=== PATIENT | male | born 1980 | race Caucasian/White ===

== ENCOUNTER 2019-06-22 19:44 | Emergency (ER) | payer BC ==
[~2019-06-22] VITALS: Ht 180.3 cm; Wt 86.3 kg
[~2019-06-22 19:44] MED LIST: CYCL10TA10 PO
[2019-06-22 19:50] VITALS: BP 102/68
[2019-06-22] MEDS ORDERED: ketorolac trometh inj. 60 MG/2 ML VIAL IM ONE (20:30)
== END 2019-06-22 21:00 | disposition home or self-care (01) ==
LOC: ER 19:44
DX: M25.571 Pain in right ankle and joints of right foot (principal); G89.29 Other chronic pain; F12.90 Cannabis use, unspecified, uncomplicated; Z98.890 Other specified postprocedural states; Z79.899 Other long term (current) drug therapy
CPT/HCPCS: 96372; 99283; J1885

== ENCOUNTER 2020-03-05 14:45 | Emergency (ER) | payer BC ==
[~2020-03-05] VITALS: Ht 182.9 cm; Wt 80.9 kg
[2020-03-05] MEDS ORDERED: LIDOcaine Viscous 15ml cup TP ONE (16:05)
[2020-03-05] MEDS ORDERED: HYDR-3965 PO (17:04)
[2020-03-05] MEDS ORDERED: AMOX-422 PO (17:04)
--- NOTE | 2020-03-05 17:26 | NUR ---
Patient declines oropharynx swab
[2020-03-05 17:28] VITALS: BP 120/81
== END 2020-03-05 17:29 | disposition home or self-care (01) ==
LOC: ER 14:45
DX: R07.0 Pain in throat (principal); H93.19 Tinnitus, unspecified ear; F12.90 Cannabis use, unspecified, uncomplicated; Z98.890 Other specified postprocedural states; Z79.2 Long term (current) use of antibiotics; Z79.899 Other long term (current) drug therapy
CPT/HCPCS: 99283

== ENCOUNTER 2021-09-25 10:47 | Day surgery (SDC) | payer BC ==
[~2021-09-25] VITALS: Ht 180.3 cm; Wt 80.5 kg
[~2021-09-25 10:47] MED LIST changes: +CYCL-524 PO; -CYCL10TA10 PO
[2021-09-25 11:05] VITALS: BP 127/75
[2021-09-25] MEDS ORDERED: DULO-31 PO (11:08)
[2021-09-25] MEDS ORDERED: LORA-269 PO (11:08)
[2021-09-25 13:40] VITALS: BP 128/80
== END 2021-09-25 13:40 | disposition home or self-care (01) ==
LOC: SSTAY O 10:47
PROVIDERS: ATTEND Preventive Medicine Aerospace Medicine
DX: E04.1 Nontoxic single thyroid nodule (principal)
CPT/HCPCS: 10005; 60100